=== PATIENT | female | born 1935 | race Caucasian/White ===

== ENCOUNTER 2020-05-08 03:03 | Emergency (ER) | payer OTHER ==
[~2020-05-08] VITALS: Ht 162.6 cm; Wt 63.5 kg
[~2020-05-08 03:03] MED LIST: ALPR.5 PO; CYCL10 PO; FLUR15 PO; GLIM2 PO; LOSA50 PO; METF500C PO; OXYACE5T PO; PRED10 PO; PROACE100 PO; Roxicodone5 MG PO
[2020-05-08] MEDS ORDERED: Zovirax800 MG PO (03:14)
[2020-05-08 03:26] LABS: Source, Urine Catheter
[2020-05-08 03:31] LABS: Appearance, Urine Cloudy (Clear); Bilirubin, Urine Neg (Neg); Blood, Urine 5+ (Neg); Color, Urine Amber (P-Yellow); Glucose Qualitative, Urine 4+ (Neg); Ketones, Urine Neg (Neg); Leukocyte Esterase, Urine 3+ (Neg); Nitrite, Urine Neg (Neg); Protein, Urine 3+ (Neg); Specific Gravity, Urine 1.025 (1.003-1.022); Urobilinogen, Urine NORM (Normal)
[2020-05-08 03:37] LABS: White Blood Cells, Urine TNTC /hpf (0-5)
[2020-05-08 03:38] LABS: Bacteria Many /hpf; Squamous Epithelial Cells Few /hpf (Few); Yeast/Fungi Urine Few /hpf
[2020-05-08] MEDS ORDERED: Keflex500 MG PO (03:48)
[2020-06-11] MEDS ORDERED: ALEVE220 MG PO (07:45)
[2020-06-11] MEDS ORDERED: KEFLEX500 MG PO (08:51)
[2020-06-11] MEDS ORDERED: HYDR1TAB94 PO (10:15)
== END 2020-05-08 05:37 | disposition home or self-care (01) ==
LOC: ER 03:03
PROVIDERS: Emergency Medicine
DX: N39.0 Urinary tract infection, site not specified (principal); B01.9 Varicella without complication; B02.9 Zoster without complications; Z88.0 Allergy status to penicillin; Z88.2 Allergy status to sulfonamides; Z88.6 Allergy status to analgesic agent; Z88.8 Allergy status to other drugs, medicaments and biological substances; Z79.899 Other long term (current) drug therapy; Z79.2 Long term (current) use of antibiotics; I10 Essential (primary) hypertension; E11.9 Type 2 diabetes mellitus without complications
CPT/HCPCS: 81001; 87086; 99283; A9270-GY